=== PATIENT | female | born 1980 | race Caucasian/White ===

== ENCOUNTER → 2018-07-06 | Outpatient (CLI) | payer BC ==
[~2018-07-06] MED LIST: CENTTAB47 PO; IBUP80TA PO; PERC5TAB12 PO; SIME80TA PO; TRIA0.1C60 TOP
--- NOTE | 2018-07-07 01:36 | REP ---
Clinical: Trauma. Crush injury. Technique: AP, lateral, bilateral oblique views left hand . Findings: The osseous structures and joint spaces are intact and normal. There is no evidence for acute fracture or dislocation. Surrounding soft tissues are unremarkable. No subcutaneous emphysema or radiodense foreign body. Impression: No acute fracture or dislocation. Electronically Signed by Meño Gruber MD 07/07/2018 01:27 A
== END ==
LOC: M WUC 13:16
PROVIDERS: ATTEND Physician Assistant
DX: S67.02XA Crushing injury of left thumb, initial encounter (principal); S67.191A Crushing injury of left index finger, initial encounter; X58.XXXA Exposure to other specified factors, initial encounter; Y92.9 Unspecified place or not applicable

== ENCOUNTER → 2018-10-10 | Outpatient (REF) | payer BC ==
[2018-10-13 00:06] LABS: HSV IgM TYPES 1&2 1.92 Ratio (0.00-0.90); HSV TYPE I IgG SPECIFIC 1.39 index (0.00-0.90); HSV TYPE II IgG SPECIFIC <0.91 index (0.00-0.90)
== END ==
LOC: M LAB REF 16:44
PROVIDERS: ATTEND Obstetrics & Gynecology
DX: Z11.3 Encounter for screening for infections with a predominantly sexual mode of transmission (principal)

== ENCOUNTER → 2019-01-09 | Outpatient (CLI) | payer BC ==
--- NOTE | 2019-01-09 16:32 | REPMRS ---
Patient History The patient states she had a clinical breast exam in 11/2018. Family history of endometrial cancer at age 60 in mother, endometrial cancer at age 50 in maternal aunt, colorectal cancer at age 68 in maternal grandmother. No Hormone Replacement Therapy Digital Woman Screen Mammo: January 09, 2019 - Exam #: [id number] Bilateral CC and MLO view(s) were taken. Technologist: Sindi Ventura, Technologist No prior studies available for comparison. FINDINGS: The breast tissue is heterogeneously dense. This may lower the sensitivity of mammography. There is no evidence of dominant mass, architectural distortion, or grouped microcalcification typical of malignancy. 3-D tomosynthesis shows no additional findings. Assessment: BI-RADS/ACR category 1 mammogram. Negative Mammogram. Recommendation Routine screening mammogram of both breasts in 1 year (for women over age 40). This patient's Lifetime Breast Cancer RIsk is estimated at 14.4 %. This mammogram was interpreted with the aid of an FDA-approved computer-aided dectection system. Electronically Signed By: Jose Luis Castillo MD 01/09/19 [id number]
== END ==
LOC: M WHC 13:52
PROVIDERS: ATTEND Obstetrics & Gynecology
DX: Z12.31 Encounter for screening mammogram for malignant neoplasm of breast (principal)

== ENCOUNTER → 2020-01-11 | Outpatient (CLI) | payer BC ==
--- NOTE | 2020-01-11 10:35 | REPMRS ---
Patient History The patient states she had a clinical breast exam in November 2019. Family history of endometrial cancer at age 60 in mother, endometrial cancer at age 50 in maternal aunt, colorectal cancer at age 68 in maternal grandmother. No Hormone Replacement Therapy Digital Woman Screen Mammo: January 11, 2020 - Exam #: [id number] Bilateral CC and MLO view(s) were taken. Technologist: Candi Lamb, Technologist Prior study comparison: January 09, 2019, bilateral digital woman screen mammo performed at [facility]. FINDINGS: The breast tissue is heterogeneously dense. This may lower the sensitivity of mammography. The Volpara volumetric breast density category is: C. There is a moderate amount of heterogeneously dense fibroglandular tissue which is fairly symmetric. There is no interval development of dominant mass, architectural distortion, or grouped microcalcification typical of malignancy. There has been no change in the appearance of the mammogram from the prior studies. 3-D tomosynthesis shows no additional findings. Assessment: BI-RADS/ACR category 1 mammogram. Negative Mammogram. Recommendation Routine screening mammogram of both breasts in 1 year (for women over age 40). This patient's Lifetime Breast Cancer RIsk is estimated at 14.3 %. This mammogram was interpreted with the aid of an FDA-approved computer-aided dectection system. Electronically Signed By: Jose Luis Castillo MD 01/11/20 [id number]
== END ==
LOC: M WHC 09:00
PROVIDERS: ATTEND Advanced Practice Midwife
DX: Z12.31 Encounter for screening mammogram for malignant neoplasm of breast (principal); Z80.0 Family history of malignant neoplasm of digestive organs; Z80.49 Family history of malignant neoplasm of other genital organs

== ENCOUNTER → 2021-01-13 | Outpatient (CLI) | payer BC ==
[~2021-01-13] MED LIST changes: +SIME80CH5 PO; -SIME80TA PO
--- NOTE | 2021-01-13 12:49 | REPMRS ---
Patient History The patient states she had a clinical breast exam 12-09-2020. Patient is postmenopausal. Family history of endometrial cancer at age 60 in mother, endometrial cancer at age 50 in maternal aunt, colorectal cancer at age 68 in maternal grandmother. Took progesterone for 1 year beginning at age 35. Tomosynthesis is performed. Volpara breast density is b. [facility] lifetime risk of breast cancer 10.3%. Patient states no breast complaints today. Patient has signed MRS History Sheet. Digital Woman Screen Mammo: January 13, 2021 - Exam #: [id number] Bilateral CC and MLO view(s) were taken. Technologist: Sindy Calderon Visual Basic Programmer Prior study comparison: January 11, 2020, bilateral digital woman screen mammo performed at [facility]. January 09, 2019, bilateral digital woman screen mammo performed at [facility]. FINDINGS: The breast tissue is heterogeneously dense. This may lower the sensitivity of mammography. There has been no change in the appearance of the mammogram from the prior studies. There is a moderate amount of residual fibroglandular tissue which is fairly symmetric. There is no interval development of dominant mass, areas of architectural distortion, or clustered microcalcification typical of malignancy. Assessment: BI-RADS/ACR category 1 mammogram. Negative Mammogram. Recommendation Routine screening mammogram in 1 year (for women over age 40). This mammogram was interpreted with the aid of an FDA-approved computer-aided dectection system. Electronically Signed By: Luis Forrester MD 01/13/21 [id number]
== END ==
LOC: M WHC 10:31
PROVIDERS: ATTEND Advanced Practice Midwife
DX: Z12.31 Encounter for screening mammogram for malignant neoplasm of breast (principal)

== ENCOUNTER → 2022-02-04 | Outpatient (CLI) | payer BC | LOC: M WHC 07:16 | PROVIDERS: ATTEND Obstetrics & Gynecology | DX: Z12.31 Encounter for screening mammogram for malignant neoplasm of breast (principal) ==

== ENCOUNTER → 2022-05-02 | Outpatient (CLI) | payer BC | LOC: M LABSMTC 10:35 | PROVIDERS: ATTEND Nurse Practitioner Family | DX: Z01.812 Encounter for preprocedural laboratory examination (principal); Z20.822 Contact with and (suspected) exposure to COVID-19; M67.441 Ganglion, right hand ==

== ENCOUNTER 2022-10-28 12:24 | Emergency (ER) | payer BC ==
[~2022-10-28] VITALS: Ht 152.4 cm; Wt 77.1 kg
[2022-10-28 13:40] LABS: BASO % 0.4 % (0.0-1.0); EOS # 0.1 10^3/uL (0.0-0.5); EOS % 1.9 % (0.0-3.0); HEMATOCRIT 40.1 % (36.0-47.0); HEMOGLOBIN 12.9 g/dl (12.0-15.5); LYMPH # 1.3 10^3/uL (1.5-5.0); LYMPH % 19.3 % (24.0-44.0); MEAN CORPUSCULAR HEMOGLOBIN 29.1 pg (27.0-33.0); MEAN CORPUSCULAR HGB CONC 32.2 g/dl (32.0-36.5); MEAN CORPUSCULAR VOLUME 90.3 fl (80.0-96.0); MONO # 0.4 10^3/uL (0.0-0.8); MONO % 6.5 % (2.0-8.0); NEUTROPHILS # 4.9 10^3/uL (1.5-8.5); NEUTROPHILS % 71.8 % (36.0-66.0); PLATELET COUNT, AUTOMATED 277 10^3/uL (150-450); RED BLOOD COUNT 4.44 10^6/uL (4.00-5.40); WHITE BLOOD COUNT 6.8 10^3/uL (4.0-10.0)
[2022-10-28 14:07] LABS: BLOOD UREA NITROGEN 7 MG/DL (9-23); CALCIUM LEVEL 9.3 MG/DL (8.5-10.1); CARBON DIOXIDE LEVEL 30 MMOL/L (20-31); CHLORIDE LEVEL 104 MMOL/L (98-107); CREATININE FOR GFR 0.67 MG/DL (0.55-1.30); GLOMERULAR FILTRATION RATE > 60.0 (>58); GLUCOSE, FASTING 89 MG/DL (60-100); MAGNESIUM LEVEL 2.1 MG/DL (1.8-2.4); POTASSIUM SERUM 4.2 MMOL/L (3.5-5.1); SODIUM LEVEL 141 MMOL/L (136-145)
[2022-10-28 14:10] LABS: HCG, SERUM QUALITATIVE NEGATIVE (NEGATIVE); THYROID STIMULATING HORMONE 1.098 uIU/ML (0.55-4.78)
[2022-10-28] MEDS ORDERED: MECLIZINE 25 MG TABLET PO ONE (16:40)
[2022-10-28 17:17] LABS: CK-MB VALUE MASS < 1.0 NG/ML (<3.6)
[2022-10-28 17:22] LABS: CPK CREATINE PHOSPHOKINASE 83 U/L (34-145)
[2022-10-28] MEDS ORDERED: MECL1TAB31 PO ×2 (18:03→18:06)
[2022-10-28 18:25] VITALS: BP 150/97; TEMP 97.8; O2SAT 100
== END 2022-10-28 18:28 | disposition home or self-care (01) ==
LOC: M ED 12:24
DX: R42 Dizziness and giddiness (principal); Z88.0 Allergy status to penicillin; Z88.8 Allergy status to other drugs, medicaments and biological substances; Z79.899 Other long term (current) drug therapy

== ENCOUNTER → 2022-11-04 | Outpatient (REF) | payer BC ==
[~2022-11-04] MED LIST changes: +MECL1TAB31 PO
== END ==
LOC: M LAB REF 12:50
PROVIDERS: ATTEND Physician Assistant Medical
DX: M79.604 Pain in right leg (principal)

== ENCOUNTER → 2023-02-16 | Outpatient (CLI) | payer BC ==
[~2023-02-16] MED LIST changes: +MECL-209 PO; -MECL1TAB31 PO
== END ==
LOC: M WHC 12:38
PROVIDERS: ATTEND Obstetrics & Gynecology
DX: Z12.31 Encounter for screening mammogram for malignant neoplasm of breast (principal)

== ENCOUNTER → 2023-11-25 | Outpatient (REF) | payer BC ==
[2023-11-25 18:27] LABS: ESTRADIOL 72.4 PG/ML; FOLLICLE STIMULATING HORMONE 50.8 mIU/ML
[2023-11-25 18:28] LABS: PROGESTERONE < 0.21 NG/ML
[2023-11-29 06:44] LABS: LUTEINIZING HORMONE 26.8 mIU/ML
[2023-12-03 00:43] LABS: TESTOSTERONE FREE (DIRECT) 6.5 pg/mL (0.1-6.4)
== END ==
LOC: M LAB REF 16:18
PROVIDERS: ATTEND Obstetrics & Gynecology
DX: N95.1 Menopausal and female climacteric states (principal); R53.83 Other fatigue; F52.0 Hypoactive sexual desire disorder

== ENCOUNTER → 2024-02-28 | Outpatient (CLI) | payer BC | LOC: M WHC 06:56 | PROVIDERS: ATTEND Obstetrics & Gynecology | DX: Z12.31 Encounter for screening mammogram for malignant neoplasm of breast (principal) ==

== ENCOUNTER 2024-04-09 07:53 | Day surgery (SDC) | payer BC ==
[~2024-04-09] VITALS: Ht 152.4 cm; Wt 80.3 kg
[~2024-04-09 07:53] MED LIST changes: +CENT1TAB PO
[2024-04-09] MEDS ORDERED: LIDOCAINE 2% 100MG/5ML SDV (FOR ANES.) As Ordered ONE (08:30)
[2024-04-09] MEDS ORDERED: propofoL 200 MG/20 ML VIAL As Ordered ONE (08:30)
[2024-04-09 09:43] VITALS: TEMP 97.4
[2024-04-09 10:14] VITALS: BP 119/80; O2SAT 99
== END 2024-04-09 10:18 | disposition home or self-care (01) ==
LOC: M OPP 07:53
PROVIDERS: ATTEND Surgery
DX: Z12.11 Encounter for screening for malignant neoplasm of colon (principal); K63.5 Polyp of colon; Z80.0 Family history of malignant neoplasm of digestive organs; Z88.0 Allergy status to penicillin; Z88.8 Allergy status to other drugs, medicaments and biological substances; Z79.899 Other long term (current) drug therapy